=== PATIENT | male | born 1965 | race Two or more races ===

== ENCOUNTER 2019-04-10 17:30 | Inpatient (IN) | payer OTHER, MEDICARE ==
[~2019-04-10] VITALS: Ht 182.9 cm; Wt 101.2 kg
[2019-04-10] MEDS ORDERED: SODIUM CHLORIDE 0.9% 1,000 ML IVB ONE (19:16)
[2019-04-10] MEDS ORDERED: MORPHINE SULF INJ 2 MG/ML SYRINGE 1ML IV ONE (19:45)
[2019-04-10] MEDS ORDERED: ONDANSETRON HCL 4 MG/2 ML VIAL IV ONE (19:45)
[2019-04-10 19:57] LABS: Basophils # (auto) 0.1 uL; Basophils % (auto) 0.8 % (0.0-2.0); Eosinophils # (auto) 0.2 uL; Eosinophils % (auto) 2.1 % (0.0-7.0); Hematocrit 40.7 % (41.0-53.0); Hemoglobin 13.8 g/dL (13.5-17.5); Lymphocytes # (auto) 1.4 uL; Lymphocytes % (auto) 16.8 % (10.0-50.0); Mean Corpuscular Hemoglobin 30.6 pg (28.0-32.0); Mean Corpuscular Hgb Conc. 33.9 g/dL (32.0-36.0); Mean Corpuscular Volume 90.2 fL (80.0-100.0); Monocytes # (auto) 0.7 uL; Monocytes % (auto) 8.8 % (0.0-12.0); Neutrophils # (auto) 6.1 uL; Neutrophils % (auto) 71.5 % (37.0-80.0); Nucleated Red Blood Cells % 0.1 %; Platelet Count (auto) 331 10^3/uL (140-450); Red Blood Cells 4.52 10^6/uL (4.5-5.90); Red Cell Distribution Width 14.7 % (11.8-14.3); White Blood Cell 8.5 10^3/uL (4.4-10.8)
[2019-04-10 20:10] LABS: Albumin 3.3 g/dL (3.4-5.0); BUN/Creatinine Ratio 11.1; Calcium 8.5 mg/dL (8.5-10.1); Potassium 3.9 mmol/L (3.5-5.1)
[2019-04-10 20:13] LABS: INR 0.94 (0.9-1.15); Partial Thromboplastin Time 26.9 sec (23.64-32.05)
[2019-04-10 20:14] LABS: Bilirubin, Total 0.3 mg/dL (0.2-1.0)
[2019-04-10 23:54] LABS: Basophils # (auto) 0.1 uL; Basophils % (auto) 0.9 % (0.0-2.0); Eosinophils # (auto) 0.3 uL; Eosinophils % (auto) 3.9 % (0.0-7.0); Hematocrit 39.7 % (41.0-53.0); Hemoglobin 13.8 g/dL (13.5-17.5); Lymphocytes # (auto) 1.6 uL; Lymphocytes % (auto) 20.3 % (10.0-50.0); Mean Corpuscular Hemoglobin 31.5 pg (28.0-32.0); Mean Corpuscular Hgb Conc. 34.8 g/dL (32.0-36.0); Mean Corpuscular Volume 90.6 fL (80.0-100.0); Monocytes # (auto) 0.8 uL; Monocytes % (auto) 10.5 % (0.0-12.0); Neutrophils # (auto) 5.1 uL; Neutrophils % (auto) 64.4 % (37.0-80.0); Nucleated Red Blood Cells % 0.1 %; Platelet Count (auto) 311 10^3/uL (140-450); Red Blood Cells 4.39 10^6/uL (4.5-5.90); Red Cell Distribution Width 14.5 % (11.8-14.3); White Blood Cell 7.9 10^3/uL (4.4-10.8)
[2019-04-10 23:58] LABS: Urine Bacteria NONE SEEN /hpf (None Seen); Urine Blood Negative /uL (Negative); Urine Mucus FEW (None Seen); Urine Specific Gravity 1.028 (1.001-1.035); Urine WBC 1 /hpf (0 - 3)
[2019-04-11] MEDS ORDERED: DOCUSATE SOD 100 MG CAP PO PRN (00:45)
[2019-04-11] MEDS ORDERED: ONDANSETRON HCL 4 MG/2 ML VIAL IV PRN (00:45)
[2019-04-11] MEDS ORDERED: ACETAMINOPHEN 325 MG TAB PO PRN (00:45)
[2019-04-11 01:50] VITALS: BP 134/94
--- NOTE | 2019-04-11 01:55 | NUR ---
MS admit from ER [facility] admitted to tele/MS after SBAR received. Patient oriented to Cierra ye RN, unit, room, bed, and unit policies regarding patient care and visiting hours. Patient weighed by bedscale and encouraged to call if they need something. All questions and concerns addressed, patient verbalized understanding
[2019-04-11] MEDS: MORPHINE SULFATE 4 MG/ML SYR/VIAL IV PRN ×2 (02:26→17:33)
[2019-04-11 08:30] VITALS: BP 140/96
[2019-04-11] MEDS: FAMOTIDINE 20 MG TAB PO SCH ×2 (09:16→21:21)
[2019-04-11 13:00] VITALS: BP 135/81
[2019-04-11] MEDS: HYDROcodone-ACET 5/325MG TAB PO PRN ×2 (15:58→20:35)
[2019-04-11 17:16] VITALS: BP 127/89
--- NOTE | 2019-04-11 19:20 | NUR ---
RECEIVED PATIENT, AWAKE, ALERT, ORIENTED X4. NO S/S OF RESPIRATORY DISTRESS, C/O LEFT GROIN PAIN. ORIENTED ON PLAN OF CARE. BED IS LOCKED AND IN LOWEST POSITION, SIDE RAILS UP X2, CALL LIGHT WITHIN REACH. WILL CONTINUE TO MONITOR.
--- NOTE | 2019-04-11 19:55 | NUR ---
DR. Brandi LEBRON AT BEDSIDE
[2019-04-11 22:00] VITALS: BP 149/99
[2019-04-12] MEDS: MORPHINE SULFATE 4 MG/ML SYR/VIAL IV PRN (04:35)
[2019-04-12 05:30] VITALS: BP 125/72
[2019-04-12 05:42] LABS: Basophils # (auto) 0.1 uL; Basophils % (auto) 0.9 % (0.0-2.0); Eosinophils # (auto) 0.5 uL; Eosinophils % (auto) 6.7 % (0.0-7.0); Hematocrit 43.9 % (41.0-53.0); Hemoglobin 15.5 g/dL (13.5-17.5); Lymphocytes # (auto) 1.6 uL; Mean Corpuscular Hemoglobin 31.7 pg (28.0-32.0); Mean Corpuscular Hgb Conc. 35.3 g/dL (32.0-36.0); Mean Corpuscular Volume 89.7 fL (80.0-100.0); Monocytes # (auto) 0.8 uL; Monocytes % (auto) 10.5 % (0.0-12.0); Neutrophils # (auto) 4.5 uL; Neutrophils % (auto) 59.9 % (37.0-80.0); Platelet Count (auto) 319 10^3/uL (140-450); Red Blood Cells 4.89 10^6/uL (4.5-5.90); Red Cell Distribution Width 14.5 % (11.8-14.3); White Blood Cell 7.5 10^3/uL (4.4-10.8)
[2019-04-12 05:56] LABS: BUN/Creatinine Ratio 7.5; Calcium 8.7 mg/dL (8.5-10.1); Potassium 3.9 mmol/L (3.5-5.1)
--- NOTE | 2019-04-12 07:16 | NUR ---
CARE ENDORSED TO AM SHIFT RN
--- NOTE | 2019-04-12 07:30 | NUR ---
Opening Shift Note Assumed care of patient, awake and alert . No S/S of distress/SOB or pain. Instructed on POC and to call for assist PRN, will continue to monitor for changes Q1hr and PRN.
[2019-04-12 08:33] VITALS: BP 131/83
[2019-04-12] MEDS: FAMOTIDINE 20 MG TAB PO SCH (10:37)
[2019-04-12 12:30] VITALS: BP 122/70
--- NOTE | 2019-04-12 14:30 | NUR ---
Dr. Zepeda, Hospitalist, at bedside. New orders received.
--- NOTE | 2019-04-12 14:45 | NUR ---
Spoke with Liz, who said patient does not have a current primary care provider. Paged Riya Raines, aftercare coordinator, for consultation.
[2019-04-12 15:13] VITALS: BP 122/70
--- NOTE | 2019-04-12 15:15 | NUR ---
Went into room to give patient discharge paperwork, and patient was not in his room. Paged overhead for patient to return to his room, and patient has not returned.
--- NOTE | 2019-04-12 15:49 | NUR ---
Patient left AMA, with IV access. Will inform [facility] at [phone].
--- NOTE | 2019-04-12 15:49 | NUR ---
Received call from Liz, who stated that her had left the hospital and walked home; she said she would bring him back so that his IV could be DC'd.
--- NOTE | 2019-04-12 16:13 | NUR ---
Left patient discharge paperwork in charge nurse office.
== END 2019-04-12 15:00 | disposition home or self-care (01) | DRG 378 ==
LOC: ER 17:30 → EDBD 17:30 → OVERFLOW 17:31 → WEST WING 04-11 04:15
PROVIDERS: ADMIT Nurse Practitioner; ATTEND Family Medicine
DX: K92.1 Melena (principal); E87.1 Hypo-osmolality and hyponatremia; K40.30 Unilateral inguinal hernia, with obstruction, without gangrene, not specified as recurrent; K40.20 Bilateral inguinal hernia, without obstruction or gangrene, not specified as recurrent; E66.9 Obesity, unspecified; F12.90 Cannabis use, unspecified, uncomplicated; F17.210 Nicotine dependence, cigarettes, uncomplicated; M89.552 Osteolysis, left thigh; Z68.30 Body mass index [BMI] 30.0-30.9, adult; Z83.3 Family history of diabetes mellitus; Z88.8 Allergy status to other drugs, medicaments and biological substances
CPT/HCPCS: 36415; 71045; 74176; 80048; 80053; 81001; 82150; 83690; 83735; 85025; 85610; 85730; 86850; 86900; 86901; 87081; 93005; G0378; J2405